=== PATIENT | male | born 1965 ===

== ENCOUNTER 2021-01-28 15:15 | Emergency (ER) | payer SELFPAY ==
--- NOTE | 2021-01-28 16:25 | NUR ---
Attempted to triage pt, pt was not found in the ER waiting room or outside ER.
== END 2021-01-28 16:42 | disposition left against medical advice (07) ==
LOC: ER 15:15
DX: Z53.21 Procedure and treatment not carried out due to patient leaving prior to being seen by health care provider (principal)